=== PATIENT | male | born 1935 | race African-American/Black ===

== ENCOUNTER 2016-10-02 10:20 | Inpatient (IN) | payer MEDICARE, MEDICAID ==
[~2016-10-02] VITALS: Ht 188 cm; Wt 81.6 kg
[2016-10-02] MEDS ORDERED: ALPR-392 PO (10:31)
[2016-10-02] MEDS ORDERED: DONE5TAB33 PO (10:31)
[2016-10-02] MEDS ORDERED: ISOS30TA6 PO (10:31)
[2016-10-02] MEDS ORDERED: GLIM2TAB2 PO (10:31)
[2016-10-02] MEDS ORDERED: CLON0.3T PO (10:31)
[2016-10-02] MEDS ORDERED: ZOLP5TAB8 PO (10:31)
[2016-10-02] MEDS ORDERED: ASPI-1035 PO (10:31)
[2016-10-02] MEDS ORDERED: METO25TA6 PO (10:31)
[2016-10-02] MEDS ORDERED: SODIUM CHLORIDE 0.9% 1,000 ML IV ONE (10:34)
[2016-10-02 11:55] LABS: BASOPHILS % 0.3 % (0.0-2.0); EOSINOPHILS % 0.6 % (0.0-5.0); HEMATOCRIT. 35.1 % (42.0-52.0); LYMPHOCYTES % 11.3 % (20.0-50.0); MEAN CORPUSCULAR HEMOGLOBIN 33.2 pg (28.0-32.0); MEAN CORPUSCULAR HGB CONC 34.2 g/dL (31.0-37.0); MEAN CORPUSCULAR VOLUME 97.1 fL (80.0-94.0); MONOCYTES % 13.3 % (2.0-8.0); NEUTROPHILS % 74.5 % (40.0-76.0); PLATELET 126 x1000/uL (130-400); RED BLOOD CELL COUNT 3.61 mill/uL (4.7-6.1); RED CELL DISTRIBUTION WIDTH 13.5 % (11.6-14.6); WHITE BLOOD COUNT 3.5 x1000/uL (4.5-11.0)
[2016-10-02 12:03] LABS: INR 1.1; PROTHROMBIN TIME 11.3 sec
[2016-10-02 12:15] LABS: ALANINE AMINOTRANSFERASE 14 IU/L (13-61); ALBUMIN 2.6 g/dL (3.4-5.0); ANION GAP 10; CALCIUM 8.2 mg/dL (8.5-10.1); CARBON DIOXIDE 28 mEq/L (21-32); CHLORIDE 113 mEq/L (98-107); ETHANOL BLOOD < 10 mg/dL; INDEX HEMOLYSI 1 (1-3); INDEX ICTERIC 1 (1-4); INDEX LIPEMIC 1 (1-3); UREA NITROGEN BLOOD 17 mg/dL (7-21); eGFR > 60 mL/min (>60)
[2016-10-02 12:16] LABS: NT PRO B-TYPE NATRIURETIC PEP 2990 pg/mL (5-125); TROPONIN I 0.08 ng/mL (0.00-0.04)
[2016-10-02] MEDS ORDERED: ASPIRIN 81MG TABLET PO ONE (12:45)
[2016-10-02] MEDS ORDERED: IPRATROPIUM/ALBUTEROL 0.5-3(2.5)MG/3ML NEB INH PRN (13:00)
[2016-10-02] MEDS ORDERED: ONDANSETRON HCL 4MG/2ML VIAL IV PRN (13:00)
[2016-10-02] MEDS ORDERED: MAGNESIUM/ALUMINUM HYDROXIDE/SIMETHICONE 30ML UDC PO PRN (13:00)
[2016-10-02] MEDS ORDERED: ACETAMINOPHEN 325MG TABLET PO PRN (13:00)
[2016-10-02 14:36] LABS: GLUCOSE URINE NEGATIVE (NEGATIVE); KETONES URINE TRACE (NEGATIVE); LEUKOCYTE ESTERASE URINE 3+ (NEGATIVE); NITRITE URINE POSITIVE (NEGATIVE); OCCULT BLOOD URINE 3+ (NEGATIVE); PROTEIN URINE 1+ (NEGATIVE)
[2016-10-02 14:38] LABS: CLARITY URINE HAZY (CLEAR); COLOR URINE AMBER (YELLOW)
[2016-10-02 14:54] LABS: *AMPHETAMINES SCREEN URINE NEGATIVE (NEGATIVE); *BARBITURATES SCREEN URINE NEGATIVE (NEGATIVE); *BENZODIAZEPINES SCREEN URINE PRESUMTIVE POSITIVE (NEGATIVE); *COCAINE SCREEN URINE NEGATIVE (NEGATIVE); CANNABINOID URINE SCREEN NEGATIVE (NEGATIVE); ECSTASY MDMA SCREEN URINE NEGATIVE (NEGATIVE); METHADONE URINE SCREEN NEGATIVE (NEGATIVE); OPIATES URINE SCREEN NEGATIVE (NEGATIVE); PHENCYCLIDINE URINE SCREEN NEGATIVE (NEGATIVE)
[2016-10-02 15:05] LABS: RBC URINE 50-100 /hpf (0-2); WBC URINE 50-100 /hpf (0-2)
[2016-10-02 15:06] LABS: BACTERIA URINE 2+; MUCUS URINE 2+ /lpf (NONE/TRACE); SQUAMOUS EPITHELIAL CELL URINE FEW /lpf (RARE/1+)
[2016-10-02 16:39] LABS: ANION GAP 13; CALCIUM 8.3 mg/dL (8.5-10.1); CARBON DIOXIDE 25 mEq/L (21-32); CHLORIDE 113 mEq/L (98-107); INDEX HEMOLYSI 1 (1-3); INDEX ICTERIC 1 (1-4); INDEX LIPEMIC 1 (1-3); MAGNESIUM 2.1 mg/dL (1.8-2.4); UREA NITROGEN BLOOD 16 mg/dL (7-21); eGFR > 60 mL/min (>60)
[2016-10-02 16:40] LABS: CREATINE KINASE 101 IU/L (39-308)
[2016-10-02 16:42] LABS: CREATINE KINASE MB FRACTION < 0.5 ng/mL (0.5-3.6); TROPONIN I 0.06 ng/mL (0.00-0.04)
[2016-10-02] MEDS ORDERED: ENOXAPARIN 40MG/0.4ML SYR SUBCUT ONE (19:45)
[2016-10-02 21:15] VITALS: BP 183/101
[2016-10-02 22:15] VITALS: BP 183/101
[2016-10-02] MEDS: CLONIDINE 0.1MG TABLET PO PRN (22:31)
[2016-10-02 23:11] LABS: CREATINE KINASE MB FRACTION 0.5 ng/mL (0.5-3.6); TROPONIN I 0.04 ng/mL (0.00-0.04)
[2016-10-02] MEDS: ENOXAPARIN 40MG/0.4ML SYR SUBCUT SCH (23:14)
[2016-10-03] VITALS (10 sets, daily range): BP systolic 137–189; BP diastolic 86–108
[2016-10-03] MEDS: CLONIDINE 0.1MG TABLET PO PRN ×2 (07:09→08:31)
[2016-10-03 08:53] LABS: HEMATOCRIT. 40.2 % (42.0-52.0); HEMOGLOBIN. 13.5 g/dL (14.0-18.0); MEAN CORPUSCULAR HEMOGLOBIN 32.9 pg (28.0-32.0); MEAN CORPUSCULAR HGB CONC 33.7 g/dL (31.0-37.0); MEAN CORPUSCULAR VOLUME 97.7 fL (80.0-94.0); MEAN PLATELET VOLUME 9.4 fl (7.4-10.4); PLATELET 144 x1000/uL (130-400); RED BLOOD CELL COUNT 4.12 mill/uL (4.7-6.1); RED CELL DISTRIBUTION WIDTH 13.8 % (11.6-14.6); WHITE BLOOD COUNT 2.9 x1000/uL (4.5-11.0)
[2016-10-03 09:11] LABS: DIFFERENTIAL COMMENT 1
[2016-10-03 09:25] LABS: THYROID STIMULATING HORMONE 1.5 uIU/mL (0.36-3.74)
[2016-10-03] MEDS ORDERED: CLONIDINE 0.3MG TABLET PO PRN ×2 (12:30→12:45)
[2016-10-03] MEDS ORDERED: ALPRAZOLAM 0.5 MG TABLET PO PRN (12:30)
[2016-10-03] MEDS ORDERED: METOPROLOL TARTRATE 25MG TABLET PO SCH (12:30)
[2016-10-03] MEDS ORDERED: ASPIRIN 81MG EC TABLET PO SCH (12:45)
[2016-10-03] MEDS ORDERED: METOPROLOL TARTRATE 25MG TABLET PO ONE (12:45)
[2016-10-03] MEDS: CEFTRIAXONE 1 G PREMIX 50 ML IV SCH (13:36)
[2016-10-03] MEDS: DONEPEZIL HCL 10MG TABLET PO SCH (13:36)
[2016-10-03] MEDS: ASPIRIN 81MG EC TABLET PO SCH (13:37)
[2016-10-03] MEDS: GLIMEPIRIDE 2MG TABLET PO SCH (13:37)
[2016-10-03] MEDS: ISOSORBIDE DINITRATE 30MG TABLET PO SCH ×2 (13:37→21:05)
[2016-10-03] MEDS ORDERED: LORAZEPAM 2MG/ML CPJ IV PRN (15:15)
[2016-10-03 17:35] LABS: ANISOCYTOSIS 1+; GIANT PLATELETS FEW; PLATELET ESTIMATE NORMAL
[2016-10-03] MEDS ORDERED: LORAZEPAM 2MG/ML CPJ IM NR (18:00)
[2016-10-03] MEDS: CLONIDINE 0.3MG TABLET PO SCH (21:05)
[2016-10-03] MEDS: ENOXAPARIN 40MG/0.4ML SYR SUBCUT SCH (21:06)
[2016-10-04] VITALS (14 sets, daily range): BP systolic 109–201; BP diastolic 63–118
[2016-10-04] MEDS: CLONIDINE 0.1MG TABLET PO PRN ×2 (04:31→20:47)
[2016-10-04 06:48] LABS: ANION GAP 11; CALCIUM 8.6 mg/dL (8.5-10.1); CARBON DIOXIDE 27 mEq/L (21-32); CHLORIDE 113 mEq/L (98-107); INDEX HEMOLYSI 1 (1-3); INDEX ICTERIC 1 (1-4); INDEX LIPEMIC 1 (1-3); UREA NITROGEN BLOOD 16 mg/dL (7-21); eGFR > 60 mL/min (>60)
[2016-10-04] MEDS ORDERED: GLIMEPIRIDE 2MG TABLET PO SCH (07:10)
[2016-10-04 07:14] LABS: HEMATOCRIT. 32.7 % (42.0-52.0); HEMOGLOBIN. 11.1 g/dL (14.0-18.0); MEAN CORPUSCULAR HEMOGLOBIN 33.1 pg (28.0-32.0); MEAN CORPUSCULAR HGB CONC 34.1 g/dL (31.0-37.0); MEAN CORPUSCULAR VOLUME 97.2 fL (80.0-94.0); MEAN PLATELET VOLUME 9.4 fl (7.4-10.4); PLATELET 138 x1000/uL (130-400); RED BLOOD CELL COUNT 3.36 mill/uL (4.7-6.1); RED CELL DISTRIBUTION WIDTH 13.6 % (11.6-14.6); WHITE BLOOD COUNT 2.7 x1000/uL (4.5-11.0)
[2016-10-04 07:57] LABS: DIFFERENTIAL COMMENT 1
[2016-10-04] MEDS: ASPIRIN 81MG EC TABLET PO SCH (08:31)
[2016-10-04] MEDS: CLONIDINE 0.3MG TABLET PO SCH ×2 (08:32→20:02)
[2016-10-04] MEDS: GLIMEPIRIDE 2MG TABLET PO SCH (08:33)
[2016-10-04] MEDS: DONEPEZIL HCL 10MG TABLET PO SCH (08:33)
[2016-10-04] MEDS: ISOSORBIDE DINITRATE 30MG TABLET PO SCH (08:33)
[2016-10-04] MEDS ORDERED: ISOSORBIDE DINITRATE 30MG TABLET PO SCH (09:00)
[2016-10-04] MEDS: METOPROLOL TARTRATE 25MG TABLET PO SCH ×2 (10:00→19:58)
[2016-10-04] MEDS: AMLODIPINE 5MG TABLET PO SCH ×2 (10:55→20:02)
[2016-10-04] MEDS ORDERED: DEXT 5% WATER 250 ML IV ONE (12:00)
[2016-10-04 12:52] LABS: PLATELET ESTIMATE NORMAL
[2016-10-04] MEDS: CEFTRIAXONE 1 G PREMIX 50 ML IV SCH (14:11)
[2016-10-04] MEDS: ENOXAPARIN 40MG/0.4ML SYR SUBCUT SCH (20:03)
[2016-10-04] MEDS ORDERED: CLONIDINE 0.1MG TABLET PO ONE (22:00)
[2016-10-05] MEDS ORDERED: HYDRALAZINE 20MG/ML VIAL IV PRN ×2 (00:34→23:52)
[2016-10-05 01:50] VITALS: BP 149/87
[2016-10-05 04:44] VITALS: BP 156/96
[2016-10-05 07:52] VITALS: BP 156/98
[2016-10-05 07:56] LABS: HEPATITIS B SURFACE ANTIGEN NEGATIVE
[2016-10-05 08:07] LABS: INDEX HEMOLYSI 1 (1-3); INDEX ICTERIC 1 (1-4); INDEX LIPEMIC 1 (1-3); IRON 70 ug/dL (50-175); TOTAL IRON BINDING CAPACITY 250 ug/dL (250-450)
[2016-10-05 08:25] LABS: HEPATITIS B CORE AB IGM NEGATIVE
[2016-10-05 08:26] LABS: HEPATITIS A AB IGM NEGATIVE (NEGATIVE)
[2016-10-05] MEDS: METOPROLOL TARTRATE 25MG TABLET PO SCH ×2 (09:06→09:07)
[2016-10-05] MEDS: CLONIDINE 0.3MG TABLET PO SCH (09:07)
[2016-10-05] MEDS: DONEPEZIL HCL 10MG TABLET PO SCH (09:08)
[2016-10-05] MEDS: AMLODIPINE 5MG TABLET PO SCH (09:08)
[2016-10-05] MEDS: ASPIRIN 81MG EC TABLET PO SCH (09:08)
[2016-10-05] MEDS: GLIMEPIRIDE 2MG TABLET PO SCH (09:50)
[2016-10-05] MEDS ORDERED: HYDRALAZINE HCL 50MG TABLET PO SCH (11:00)
[2016-10-05 11:50] VITALS: BP 119/78
[2016-10-05] MEDS: CEFTRIAXONE 1 G PREMIX 50 ML IV SCH (11:54)
[2016-10-05 12:15] LABS: HEPATITIS C VIR.AB > 11.00 INDEXVAL (0.00-0.80)
== END 2016-10-05 15:40 | disposition home or self-care (01) | DRG 306 ==
LOC: ER 11:14 → 8WST 12:38
PROVIDERS: ADMIT Internal Medicine; ATTEND Internal Medicine
DX: I35.0 Nonrheumatic aortic (valve) stenosis (principal); E43 Unspecified severe protein-calorie malnutrition; N39.0 Urinary tract infection, site not specified; E87.0 Hyperosmolality and hypernatremia; I67.82 Cerebral ischemia; R65.10 Systemic inflammatory response syndrome (SIRS) of non-infectious origin without acute organ dysfunction; F03.90 Unspecified dementia, unspecified severity, without behavioral disturbance, psychotic disturbance, mood disturbance, and anxiety; D50.9 Iron deficiency anemia, unspecified; D72.819 Decreased white blood cell count, unspecified; E11.9 Type 2 diabetes mellitus without complications; E86.0 Dehydration; I11.0 Hypertensive heart disease with heart failure; I50.9 Heart failure, unspecified; I49.3 Ventricular premature depolarization; G89.29 Other chronic pain; F41.9 Anxiety disorder, unspecified; I95.9 Hypotension, unspecified; I25.10 Atherosclerotic heart disease of native coronary artery without angina pectoris; Z78.1 Physical restraint status; Z95.1 Presence of aortocoronary bypass graft
CPT/HCPCS: 36415; 70450; 71010; 80048; 80053; 80061; 80305; 81001; 82550; 82553; 82962; 83540; 83550; 83735; 83880; 84443; 84484; 85025; 85610; 86705; 86709; 86803; 87086; 87186; 87340; 93005; 93306; 93880; 93970; 96360; 96361; 97116; 97162; 97167; 99291; G0482; J0360; J0696; J1650; J2060; J7030; J7050; J7060